=== PATIENT | female | born 1960 | race Caucasian/White ===

== ENCOUNTER 2018-07-24 08:56 | Outpatient (REF) | payer OTHER, SELFPAY ==
--- NOTE | 2018-07-24 08:30 | PAPFT_PTH ---
PATIENT: Leyda Broussard LOC: [facility] U#:[id number] AGE/SX: 58/F ROOM: RE07/24/[address]: Leyda San MD, DC : 1960 BED: DIS: 07/24/2018 SPEC #: [id number] RECD: 07/24/18 12:55 STATUS: SHANIA REMine #: [id number] DARIUS: 07/24/18 08:[address]: Leyda San DEPT: [facility] Cytology RECD BY: Samaria Brooks Tissues: 1 - CX/ENDOCX FOR PAP SMEARS Procedures: PAP THIN PREP/UVM Screening HPV DNA PROBE Comments: [id number]
== END 2018-07-24 09:16 ==
LOC: LBN 08:56
PROVIDERS: PCP Family Medicine; Visit Provider Family Medicine
DX: Z12.4 Encounter for screening for malignant neoplasm of cervix (principal); Z11.51 Encounter for screening for human papillomavirus (HPV)
CPT/HCPCS: 88142; 87624

== ENCOUNTER 2018-08-01 00:48 | Outpatient (CLI) | payer OTHER, SELFPAY ==
--- NOTE | 2018-08-01 16:00 | DI.MAMMO_ITS ---
SYMPTOMS/DIAGNOSIS: SCREENING, Z12.31 MAMMOGRAM: Mammograms were interpreted according to the usual protocol including computer analysis with CAD system, tomosynthesis and C view imaging. There is no evidence of a mass. There are no suspicious calcifications and there has been no significant interval change when compared with prior images. SUMMARY: No evidence of malignancy, Category I, yearly screening mammography is recommended. Breast density Category B. MQSA ASSESSMENT OF FINDINGS: Negative. Category 1. Patient will receive a letter notifying them of these results. BI-RADS category B. There are scattered areas of fibroglandular density.
== END 2018-08-01 01:08 ==
PROVIDERS: PCP Family Medicine; Visit Provider Family Medicine
DX: Z12.31 Encounter for screening mammogram for malignant neoplasm of breast (principal)
CPT/HCPCS: 77063; 77067

== ENCOUNTER 2019-01-15 08:38 | Outpatient (CLI) | payer OTHER, SELFPAY ==
[2019-01-15 12:52] LABS: ALT 22 U/L (12-78); AST 22 U/L (15-37); Albumin 4.4 g/dL (3.4-5.0); Alkaline Phosphatase 66 U/L (46-116); Anion Gap 8.6 mmol/L (3-11); BUN 15 mg/dL (7-18); Bilirubin, Total 0.6 mg/dL (0.2-1.0); CO2 29.4 mmol/L (21.0-32.0); CREATININE 1.07 mg/dL (0.55-1.02); Chloride 103 mmol/L (98-107); Cholesterol 265 mg/dL (50-200); Estimated GFR 52.31 (mL/min/1.73m2); Glucose 112 mg/dL (70-100); HDL Cholesterol 88 mg/dL (40-60); LDL CHOLESTEROL 151 mg/dL (<100); Potassium 4.5 mmol/L (3.5-5.1); Sodium 141 mmol/L (136-145); Total Protein 7.8 g/dL (6.4-8.2); Triglyceride 80 mg/dL (30-150)
[2019-01-15 13:55] LABS: Calcium 9.3 mg/dL (8.5-10.1)
== END 2019-01-15 08:58 ==
PROVIDERS: PCP Family Medicine; Visit Provider Family Medicine
DX: Z00.00 Encounter for general adult medical examination without abnormal findings (principal); I10 Essential (primary) hypertension
CPT/HCPCS: 36415; 80053; 80061; 83721

== ENCOUNTER 2019-03-05 18:34 | Outpatient (REF) | payer OTHER, SELFPAY | END 2019-03-05 18:54 | LOC: LBN 18:34 | PROVIDERS: PCP Family Medicine; Visit Provider Family Medicine | DX: R30.0 Dysuria (principal) | CPT/HCPCS: 87077; 87086; 87186 ==

== ENCOUNTER 2019-04-04 15:53 | Outpatient (CLI) | payer OTHER, SELFPAY ==
--- NOTE | 2019-04-04 15:30 | DI.RAD_ITS ---
SYMPTOM/DIAGNOSIS: GREAT TOE PAIN M79.671 RIGHT GREAT TOE: A beebee marker was placed over the area of pain which is located at the level of the first proximal phalanx dorsally. There is no evidence of fracture, bony erosion or visible mass. There are degenerative changes at the first MTP joint. IMPRESSION: First MTP joint degenerative changes.
== END 2019-04-04 16:13 ==
PROVIDERS: PCP Family Medicine; Visit Provider Family Medicine
DX: M79.674 Pain in right toe(s) (principal); M77.41 Metatarsalgia, right foot; M19.071 Primary osteoarthritis, right ankle and foot
CPT/HCPCS: 36415; 73660; 84550

== ENCOUNTER 2019-07-30 09:54 | Outpatient (REF) | payer OTHER, SELFPAY ==
--- NOTE | 2019-07-30 09:15 | PAPFT_PTH ---
PATIENT: Leyda Broussard LOC: [facility] U#:[id number] AGE/SX: 59/F ROOM: RE07/30/[address]: Leyda San MD, DC : 1960 BED: DIS: 07/30/2019 SPEC #: [id number] RECD: 07/30/19 12:51 STATUS: SHANIA REQ #: [id number] DARIUS: 07/30/19 09:[address]: Leyda aSn DEPT: [facility] Cytology RECD BY: Samaria Brooks Tissues: 1 - CX/ENDOCX FOR PAP SMEARS Procedures: PAP THIN PREP/UVM Screening HPV DNA PROBE Comments: [id number]
== END 2019-07-30 10:14 ==
LOC: LBN 09:54
PROVIDERS: PCP Family Medicine; Visit Provider Family Medicine
DX: Z12.4 Encounter for screening for malignant neoplasm of cervix (principal); Z11.51 Encounter for screening for human papillomavirus (HPV)
CPT/HCPCS: 88142; 87624

== ENCOUNTER 2019-08-19 01:26 | Outpatient (CLI) | payer OTHER, SELFPAY ==
--- NOTE | 2019-08-19 15:40 | DI.MAMMO_ITS ---
EXAM: MG MAMMO SCREENING CLINICAL HISTORY: screening Z12.39 TECHNIQUE: Bilateral full field digital CC and MLO mammographic images were obtained with 3D tomosyn thesis and utilizing computer aided detection (CAD). COMPARISON: 2008 through 2018. FINDINGS: The breasts are composed of scattered fibroglandular densities, breast density category B. No suspic ious masses or suspicious microcalcifications are seen. There has been no significant change. IMPRESSION: BI-RADS category 1, negative. Yearly screening mammography is recommended. BI-RADS Cat 1 - Negative. Breast Density - Category B - Scattered areas of fibroglandular density.
== END 2019-08-19 01:46 ==
PROVIDERS: PCP Family Medicine; Visit Provider Family Medicine
DX: Z12.31 Encounter for screening mammogram for malignant neoplasm of breast (principal)
CPT/HCPCS: 77063; 77067

== ENCOUNTER 2019-10-10 11:01 | Outpatient (CLI) | payer OTHER, SELFPAY ==
--- NOTE | 2019-10-10 13:02 | DI.RAD_ITS ---
EXAM: XR WRIST RT COMPLETE CLINICAL HISTORY: RT WRIST PAIN, M25.531. TECHNIQUE: 2D digital imaging was performed. COMPARISON: ARTHRITIS SERIES-MO HAND WRIST from 01/01/2018 FINDINGS: BONES: No acute fracture is present. No bony destructive lesion is seen. JOINTS: The carpal bones are normally aligned. SOFT TISSUE: Normal. IMPRESSION: Unremarkable radiographs of the right wrist.
--- NOTE | 2019-10-10 13:02 | DI.RAD_ITS ---
EXAM: XR HAND RT COMPLETE CLINICAL HISTORY: RT HAND PAIN M79.641. TECHNIQUE: 2D digital imaging was performed. COMPARISON: ARTHRITIS SERIES-MO HAND WRIST from 01/01/2018 FINDINGS: BONES: No acute fracture is present. No bony destructive lesion is seen. JOINTS: No dislocation present. SOFT TISSUE: Normal. IMPRESSION: Unremarkable radiographs of the right hand.
== END 2019-10-10 11:21 ==
PROVIDERS: PCP Family Medicine; Visit Provider Family Medicine
DX: M79.641 Pain in right hand (principal); M25.531 Pain in right wrist
CPT/HCPCS: 73110; 73130

== ENCOUNTER 2019-10-28 11:08 | Day surgery (SDC) | payer OTHER, SELFPAY ==
--- NOTE | 2019-10-28 06:54 | W.COLOREPORT ---
Date of service: 10/28/19 Time of Service: 11:59 Colonoscopy Report Date of procedure: 10/28/19 Pre-op diagnosis general: Hx of polyps Post-op diagnosis procedure note: other (Transverse polyp) Procedure: Colonoscopy with polypectomy Surgeon: Barby Mccauley Anesthesia proc note operative: other (General/ ASA 2/Brenton Oates CRNA ) Estimated blood loss (mL): 2 Pathology: other (Transverse polyp) Complications: None Disposition: same day Indications: 59 y/o female with history of sleep apnea and HTN presents for colonoscopy screening pre-op. Her last screening was in 2014, which was unremarkable. Screening in 2011 was remarkable for tubular adenoma's x 3. She denies a family history of colon cancer. She denies any changes in bowel habits including bloody or black tarry stools, abdominal pain, diarrhea or constipation. She denies constitutional symptoms. Prep: Miralax/Dulcolax Procedure Start Time: 11:59 Procedure End Time: 12:18 Retraction Time: 14 minutes Findings: Small sessile transverse polyp Procedure Description: After informed consent was obtained the patient was taken to the procedure room and placed in a left decubitous position. Monitors were applied and a time out was done. The patients name, date of , procedure, allergies to medications and metal in their body was reviewed. The patient was then sedated. Once sedated and comfortable a rectal exam was done. External exam was normal. Internal exam revealed a normal sphincter tone and no palpable masses. The scope was then introduced and retro-flexed. No internal hemorrhoids, masses or polyps were identified on retro-flexion. The scope was then advanced to the cecum without difficulty. The TI and appendiceal orifice were identified. The prep was adequate. The scope was then slowly retracted over 14 minutes back into the rectum. Polyps were removed with cold forceps in the transverse colon. The scope was removed and the patient was woken up and taken back to Same day surgery in stable condition. The patient tolerated the procedure well and there were no immediate complications. Follow up: The patient should follow up in 5 years unless they develop changes in bowel habits or other new gastrointestinal complaints.
--- NOTE | 2019-10-28 06:55 | W.PM.DSUDISC ---
Discharge Plan Disposition Patient Disposition: HOME Condition: Good Discharge Details Reason For Visit: Hx of colon polyps Attending Provider: Barby Mccauley Primary Care Provider: Leyda San Home Meds and New Rx's Prescriptions: Continued Denavir 1 % cream 1 applic Topical TID PRNRF: 0 prednisone 10 mg tablet 10 mg PO DAILY Qty: 10 RF: 0 ibuprofen 600 mg tablet 600 mg PO TID PRN (Reason: pain) Qty: 100 RF: 3 metoprolol succinate 50 mg tablet extended release 24 hr 50 mg PO DAILY Qty: 90 RF: 4 Zyrtec 10 MG capsule 10 mg PO DAILY PRNQty: 90 RF: 12 cholecalciferol (vitamin D3) 5,000 UNIT tablet 5,000 unit PO DAILY RF: 0 Discharge Instructions Additional Instructions: Findings: One small polyp Follow up: 5 years Please call if you develop: fevers >101.5 Nausea or Vomiting Abdominal pain that is not transient DAY SURGERY UNIT POST ENDOSCOPY INSTRUCTIONS 1. Because there will be medication in your system for the next 24 hours, you may feel a little sleepy. Your coordination will be affected. Therefore: a. Do not drive or operate dangerous equipment for 24 hours. b. Do not drink alcohol beverages for 24 hours (not even beer). c. Plan to go home and rest for the day. 2. Generally there are no restrictions on your activity after a day or so has gone by, but you may feel a bit fatigued for a few days. 3 After you arrive home you may have a light meal and return to a normal diet as you can tolerate it without feeling sick to your stomach. 4. After surgery, you may feel pain or discomfort. This should be only transient, but if it persists please contact your doctor. 5. If there are any questions regarding the findings of your procedure, please feel free to contact your doctor. 6. If you are unable to contact your doctor with a problem, contact the hospital at [phone]. 7. Continue all your regular medications unless directed otherwise. I understand the above instructions and have no questions. Signature of Patient or Responsible Adult Escort Date/Time Name of Responsible Adult Escort Signature of Nurse Date/Time Activity:: Activity as Tolerated Diet:: As Tolerated Discharge Orders Discharge Orders: Discharge Order (Routine); Ordered 10/28/19 Ordered By: Barby Mccauley DS: Diagnosis Discharge Diagnosis (1) Polyp of transverse colon: Status: Acute
[2019-10-28 11:25] VITALS: BP 186/91; PULSE 61; RESP 17; TEMP 36.2; O2SAT 100
[2019-10-28] MEDS: Lactated Ringers 1,000 ML 80 ML IV (11:49)
[2019-10-28 12:10] VITALS: BP 130/80; PULSE 56; RESP 17; TEMP 36.4; O2SAT 100
--- NOTE | 2019-10-28 12:12 | BOWEL_PTH ---
PATIENT: Leyda Broussard LOC: [facility] U#:[id number] AGE/SX: 59/F ROOM: RE10/28/[address]: Barby Mccauley MD : 1960 BED: DIS: 10/28/2019 SPEC #: [id number] RECD: 10/28/19 12:41 STATUS: SHANIA REQ #: [id number] DARIUS: 10/28/19 12:[address]: Barby Mccauley DEPT: Surgical Specimen RECD BY: Samaria Brooks ENTERED: 10/28/19 12:42 SP TYPE: Bowel OTHR DR: Leyda San MD, DC Tissues: 1 - BIOPSY BOWEL Procedures: GROSS AND MICRO LEVEL 4 Comments: [id number]
== END 2019-10-28 13:15 | disposition home or self-care (01) ==
LOC: SUR 11:09
PROVIDERS: PCP Family Medicine; Visit Provider Surgery
PROC: 0DJD8ZZ Inspection of Lower Intestinal Tract, Via Natural or Artificial Opening Endoscopic (ICD-10-PCS; CPT 45378; principal; 2019-10-28 12:30)
DX: Z12.11 Encounter for screening for malignant neoplasm of colon (principal); K63.5 Polyp of colon; Z86.010 Personal history of colon polyps; I10 Essential (primary) hypertension; G47.33 Obstructive sleep apnea (adult) (pediatric)
CPT/HCPCS: 45380; 88305

== ENCOUNTER 2020-04-30 09:10 | Outpatient (CLI) | payer OTHER, SELFPAY ==
--- NOTE | 2020-04-30 12:45 | DI.RAD_ITS ---
EXAM: XR WRIST LT COMPLETE CLINICAL HISTORY: pain left wrist/no trauma,M25.532 TECHNIQUE: COMPARISON: No exams were available for comparison FINDINGS: Three views were obtained. There is prominent ulnar styloid which is a nonspecific finding. Correla tion requested regarding any evidence of impingement in this region. The carpal alignment appears no rmal. No bony abnormality seen. IMPRESSION:
== END 2020-04-30 09:30 ==
PROVIDERS: PCP Family Medicine; Visit Provider Family Medicine
DX: M25.532 Pain in left wrist (principal)
CPT/HCPCS: 73110

== ENCOUNTER 2020-07-06 00:03 | Outpatient (REF) | payer OTHER, SELFPAY ==
[2020-07-08 07:45] LABS: Patient Race White; SARS-CoV-2 RNA Undetected (Undetected); SARS-CoV-2 Specimen Source Nasal
== END 2020-07-06 00:23 ==
LOC: LBO 00:03
PROVIDERS: PCP Family Medicine; Visit Provider Nurse Practitioner Family
DX: Z11.59 Encounter for screening for other viral diseases (principal)
CPT/HCPCS: U0003

== ENCOUNTER 2021-07-27 07:24 | Outpatient (CLI) | payer OTHER, SELFPAY ==
[2021-07-27 12:48] LABS: ALT 25 U/L (14-59); AST 24 U/L (15-37); Albumin 4.4 g/dL (3.4-5.0); Alkaline Phosphatase 62 U/L (46-116); Anion Gap 7.6 mmol/L (3-11); BUN 13 mg/dL (7-18); Bilirubin, Total 0.4 mg/dL (0.2-1.0); CO2 30.4 mmol/L (21.0-32.0); Calcium 9.3 mg/dL (8.5-10.1); Calculated LDL 150 mg/dL (<100); Chloride 101 mmol/L (98-107); Cholesterol 248 mg/dL (<200); Estimated GFR 56.18 (mL/min/1.73m2); Glucose 110 mg/dL (74-106); HDL Cholesterol 77 mg/dL (40-60); Sodium 139 mmol/L (136-145); Total Protein 7.6 g/dL (6.4-8.2); Triglyceride 107 mg/dL (<150)
== END 2021-07-27 07:25 | disposition home or self-care (01) ==
LOC: LOS 07:24
PROVIDERS: PCP Family Medicine; Referring Provider Family Medicine; Visit Provider Family Medicine
DX: Z00.00 Encounter for general adult medical examination without abnormal findings (principal); I10 Essential (primary) hypertension
CPT/HCPCS: 36415; 80053; 80061

== ENCOUNTER 2021-11-02 00:57 | Outpatient (CLI) | payer OTHER, SELFPAY ==
--- NOTE | 2021-11-02 07:15 | DI.MAMMO_ITS ---
Exam(s) MAMMO SCREENING EXAM: MAMMO SCREENING CLINICAL HISTORY: screening,Z12.39. TECHNIQUE: Bilateral full field digital CC and MLO mammographic images were obtained with 3D tomosyn thesis and utilizing computer aided detection (CAD). COMPARISON: Prior mammograms were reviewed, the most recent being August 2019. FINDINGS: Asymmetric tissue in the left breast on both CC and MLO views is unchanged prior studies. Benign-appearing microcalcifications in right breast are unchanged from prior studies. There are no new spiculated masses nor malignant-appearing microcalcification either There is no significant architectural distortion nor skin thickening-retraction. IMPRESSION: Stable benign findings. No radiographic evidence of malignancy. BI-RADS Category 2 - Benign Findings Breast Density - Category B - Scattered areas of fibroglandular density Breast density Category C or D implies that the patient has dense breast tissue. Dense breast tissue can make it harder to find cancer on a mammogram. Dense breast tissue is also associated with an incr eased risk of breast cancer. This information about the result of the mammogram report was provided to the patient to raise their awareness. Use this report when you speak with the patient about their risks for breast cancer, which includes their family history. At that time, you may recommend additional screening tests (Ultrasoun d or MRI) as these tests may add significant information. A negative radiographic report should not delay biopsy if a dominant or clinically suspicious mass is present. Up to ten percent of cancers are not identified on mammography. A negative report may reinforce clinical impression. Adenosis and dense breasts may obscure an underlying neoplasm. False positive reports average 6 to 10%. Patient will receive a letter notifying them of these results.
== END 2021-11-02 01:17 ==
PROVIDERS: PCP Family Medicine; Visit Provider Family Medicine
DX: Z12.31 Encounter for screening mammogram for malignant neoplasm of breast (principal)
CPT/HCPCS: 77063; 77067

== ENCOUNTER 2022-08-24 22:31 | Outpatient (REF) | payer OTHER, SELFPAY ==
[2022-08-24 21:01] LABS: HCT 39.5 % (36.0-46.0); HGB 13.6 g/dL (11.2-15.7); MCHC 34.4 % (32.0-36.0); MCV 93 fL (80-95); MPV 9.4 fL (8.0-11.0); Platelet Count 237 10^3/uL (130-400); RBC 4.25 10^6/uL (3.93-5.22); RDW 12.8 % (11.7-14.6); RDW-SD 43.7 fL; WBC 6.35 10^3/uL (4.4-10.8)
[2022-08-24 21:28] LABS: ALT 31 U/L (14-59); AST 29 U/L (15-37); Albumin 4.4 g/dL (3.4-5.0); Alkaline Phosphatase 74 U/L (46-116); Anion Gap 8.7 mmol/L (3-11); BUN 19 mg/dL (7-18); Bilirubin, Total 0.5 mg/dL (0.2-1.0); CO2 33.3 mmol/L (21.0-32.0); CREATININE 1.7 mg/dL (0.55-1.02); Calcium 9.6 mg/dL (8.5-10.1); Chloride 98 mmol/L (98-107); Estimated GFR 33.49 (mL/min/1.73m2); Glucose 142 mg/dL (74-106); Potassium 3.2 mmol/L (3.5-5.1); Sodium 140 mmol/L (136-145); Total Protein 7.9 g/dL (6.4-8.2)
== END 2022-08-24 22:32 | disposition home or self-care (01) ==
LOC: LBN 22:31
PROVIDERS: PCP Family Medicine; Visit Provider Family Medicine
DX: Z00.00 Encounter for general adult medical examination without abnormal findings (principal); I10 Essential (primary) hypertension
CPT/HCPCS: 80053; 85027; 84443

== ENCOUNTER 2022-09-05 08:48 | Outpatient (REF) | payer OTHER, SELFPAY ==
--- NOTE | 2022-09-05 08:30 | PAPFT_PTH ---
PATIENT: Leyda Broussard LOC: [facility]#:[id number] AGE/SX: 62/F ROOM: RE09/05/[address]: Leyda San MD, DC : 1960 BED: DIS: 09/05/2022 SPEC #: [id number] RECD: 09/05/22 13:36 STATUS: SHANIA MAR #: [id number] DARIUS: 09/05/22 08:[address]: Leyda San DEPT: [facility] Cytology RECD BY: Samaria Brooks Tissues: 1 - CX/ENDOCX FOR PAP SMEARS Procedures: PAP THIN PREP/UVM Screening HPV DNA PROBE Comments: [id number]
== END 2022-09-05 08:49 | disposition home or self-care (01) ==
LOC: LBN 08:48
PROVIDERS: PCP Family Medicine; Visit Provider Family Medicine
DX: Z12.4 Encounter for screening for malignant neoplasm of cervix (principal); Z11.51 Encounter for screening for human papillomavirus (HPV)
CPT/HCPCS: 88142; 87624

== ENCOUNTER 2023-04-06 08:21 | Outpatient (CLI) | payer OTHER, SELFPAY ==
[2023-04-06 12:40] LABS: BUN 16 mg/dL (7-18); CREATININE 1.2 mg/dL (0.55-1.02); Calcium 9.5 mg/dL (8.5-10.1); Chloride 99 mmol/L (98-107); Estimated GFR 50.55 (mL/min/1.73m2); Glucose 127 mg/dL (74-106); Potassium 3.3 mmol/L (3.5-5.1); Sodium 140 mmol/L (136-145)
[2023-04-06 13:33] LABS: Hemoglobin A1C 5.8 % (<5.7)
== END 2023-04-06 08:22 | disposition home or self-care (01) ==
LOC: LOS 08:21
PROVIDERS: PCP Family Medicine; Referring Provider Family Medicine; Visit Provider Family Medicine
DX: I10 Essential (primary) hypertension (principal); R79.89 Other specified abnormal findings of blood chemistry; R73.09 Other abnormal glucose
CPT/HCPCS: 36415; 80048; 83036

== ENCOUNTER 2023-04-07 00:42 | Outpatient (CLI) | payer OTHER, SELFPAY ==
--- NOTE | 2023-04-07 07:15 | DI.RAD_ITS ---
Exam(s) XR WRIST RT COMPLETE EXAM: XR WRIST RT COMPLETE CLINICAL HISTORY: r wrist pain, TENDINITIS, M77.8. TECHNIQUE: 2D digital imaging was performed of the right wrist. Three views were obtained. PA, lat eral and oblique views were obtained. COMPARISON: CR XR WRIST RT COMPLETE from 10/10/2019 FINDINGS: BONES: No acute fracture is present. No bony destructive lesion is seen. JOINTS: The carpal bones are normally aligned. The joint spaces are well maintained. SOFT TISSUE: Normal. IMPRESSION: Unremarkable radiographs of the right wrist. DATA REPOSITORY: RADIATION DOSE DELIVERED:
== END 2023-04-07 01:02 ==
LOC: DI 00:43
PROVIDERS: PCP Family Medicine; Visit Provider Family Medicine
DX: M77.8 Other enthesopathies, not elsewhere classified (principal)
CPT/HCPCS: 73110

== ENCOUNTER → 2023-07-03 14:41 | Outpatient (CLI) | payer OTHER, SELFPAY ==
--- NOTE | 2023-07-03 08:22 | DI.RAD_ITS ---
Exam(s) XR CERVICAL SP COMP W FLEX/EXT EXAM: XR CERVICAL SP COMP W FLEX/EXT CLINICAL HISTORY: fell on neck from ladder, trouble swallowing, cervical pain, M54.2. TECHNIQUE: 2D digital imaging was performed. Eight images were obtained. AP, odontoid, lateral, flex ion and extension and bilateral oblique images were obtained. COMPARISON: CR CERV SP.WITH OBL OR FLEX/EXT from 06/23/2009 FINDINGS: The odontoid is intact. The lateral masses are well aligned. There is minimal stable anterolisthesis of C5 on C6. This is unchanged with flexion or extension. The vertebral bodies, disc spaces and po sterior elements are well maintained. No acute fracture or subluxation is present. No significant ne ural foraminal stenosis is present. The cervical thoracic junction is well maintained. The preverte bral soft tissues are unremarkable. Lung apices are clear. IMPRESSION: No acute abnormality. No acute fracture or subluxation. DATA REPOSITORY: RADIATION DOSE DELIVERED:
== END ==
PROVIDERS: PCP Family Medicine; Visit Provider Family Medicine
DX: M54.2 Cervicalgia (principal)
CPT/HCPCS: 72052

== ENCOUNTER 2023-09-25 09:53 | Outpatient (CLI) | payer OTHER, SELFPAY ==
[2023-09-25 12:41] LABS: ALT 24 U/L (14-59); AST 26 U/L (15-37); Albumin 4.2 g/dL (3.4-5.0); Alkaline Phosphatase 70 U/L (46-116); Anion Gap 11.2 mmol/L (3-11); BUN 12 mg/dL (7-18); Bilirubin, Total 0.7 mg/dL (0.2-1.0); CO2 29.8 mmol/L (21.0-32.0); CREATININE 1.2 mg/dL (0.55-1.02); Calcium 9.6 mg/dL (8.5-10.1); Chloride 98 mmol/L (98-107); Estimated GFR 50.55 (mL/min/1.73m2); Glucose 140 mg/dL (74-106); Potassium 3.4 mmol/L (3.5-5.1); Sodium 139 mmol/L (136-145); Total Protein 7.9 g/dL (6.4-8.2)
== END 2023-09-25 09:54 | disposition home or self-care (01) ==
LOC: LOS 09:53
PROVIDERS: PCP Family Medicine; Referring Provider Family Medicine; Visit Provider Family Medicine
DX: I10 Essential (primary) hypertension (principal)
CPT/HCPCS: 36415; 80053

== ENCOUNTER → 2023-10-05 02:19 | Outpatient (CLI) | payer OTHER, SELFPAY ==
--- NOTE | 2023-10-05 07:00 | DI.DEXA_ITS ---
Exam(s) XR DEXA BONE DENSITY W/WO VICENTE EXAM: XR DEXA BONE DENSITY W/WO VICENTE CLINICAL HISTORY: screening for osteoporosis in postmenopausal woman,z78.0 TECHNIQUE: COMPARISON: No exams were available for comparison FINDINGS: Lateral Spine Image: Unremarkable. No compression deformities identified. Left hip: Total T-Score: 0.6 Total Z-Score: 1.8 T- and Z-scores: Within normal limits. Lumbar Spine: Total T-Score: -1.4 Total Z-Score: 0.3 T- and Z-scores: Findings are consistent with osteopenia. IMPRESSION: No evidence of osteoporosis.
== END ==
PROVIDERS: PCP Family Medicine; Visit Provider Family Medicine
DX: Z78.0 Asymptomatic menopausal state (principal); Z13.820 Encounter for screening for osteoporosis
CPT/HCPCS: 77080

== ENCOUNTER → 2023-10-13 01:38 | Outpatient (CLI) | payer OTHER, SELFPAY ==
--- NOTE | 2023-10-13 08:15 | DI.MAMMO_ITS ---
Exam(s) MAMMO SCREENING EXAM: MAMMO SCREENING CLINICAL HISTORY: screening, Z12.39. TECHNIQUE: Bilateral full field digital CC and MLO mammographic images were obtained with 3D tomosyn thesis and utilizing computer aided detection (CAD). COMPARISON: Prior mammograms were reviewed. FINDINGS: There has been no significant change in the appearance and distribution of the fibroglandular tissue. There are no CAD designations. There are no new spiculated masses nor malignant appearing microcalcification groups. Small 3 millimeter nodule in the right breast is unchanged from at least 2018 and therefore benign. Benign-appearing microcalcifications are again noted in both breasts. There is no significant architectural distortion nor skin thickening-retraction. IMPRESSION: No radiographic evidence of malignancy. Stable benign findings BI-RADS Category 2 - Benign Findings Breast Density - Category B - Scattered areas of fibroglandular density Breast density Category C or D implies that the patient has dense breast tissue. Dense breast tissue can make it harder to find cancer on a mammogram. Dense breast tissue is also associated with an incr eased risk of breast cancer. This information about the result of the mammogram report was provided to the patient to raise their awareness. Use this report when you speak with the patient about their risks for breast cancer, which includes their family history. At that time, you may recommend additional screening tests (Ultrasoun d or MRI) as these tests may add significant information. A negative radiographic report should not delay biopsy if a dominant or clinically suspicious mass is present. Up to ten percent of cancers are not identified on mammography. A negative report may reinforce clinical impression. Adenosis and dense breasts may obscure an underlying neoplasm. False positive reports average 6 to 10%. Patient will receive a letter notifying them of these results.
== END ==
PROVIDERS: PCP Family Medicine; Visit Provider Family Medicine
DX: Z12.31 Encounter for screening mammogram for malignant neoplasm of breast (principal)
CPT/HCPCS: 77063; 77067

== ENCOUNTER 2024-04-11 14:57 | Outpatient (REF) | payer OTHER, SELFPAY ==
[2024-04-11 21:26] LABS: Anion Gap 8.5 mmol/L (3-11); BUN 11 mg/dL (7-18); CO2 29.5 mmol/L (21.0-32.0); Calcium 9.5 mg/dL (8.5-10.1); Chloride 94 mmol/L (98-107); Estimated GFR 62.52 (mL/min/1.73m2); Glucose 143 mg/dL (74-106); Potassium 3.8 mmol/L (3.5-5.1); Sodium 132 mmol/L (136-145)
[2024-04-11 21:30] LABS: Hemoglobin A1C 5.5 % (<5.7)
== END 2024-04-11 14:58 | disposition home or self-care (01) ==
LOC: LBN 14:57
PROVIDERS: PCP Family Medicine; Visit Provider Family Medicine
DX: E11.9 Type 2 diabetes mellitus without complications (principal); N28.89 Other specified disorders of kidney and ureter
CPT/HCPCS: 80048; 83036

== ENCOUNTER 2024-06-20 11:03 | Outpatient (REF) | payer OTHER, SELFPAY ==
[2024-06-20 15:22] LABS: Bilirubin Negative (Negative); Blood Negative (Negative); Clarity Clear (Clear); Glucose Negative (Negative); Ketones Negative (Negative); Leukocyte Esterase Trace (Negative); Nitrite Negative (Negative); Specific Gravity 1.015 (1.005-1.025); Urobilinogen 0.2 mg/dL (Up to 0.2)
[2024-06-20 15:44] LABS: Bacteria Moderate HPF (Negative); Casts Negative LPF (Negative); Crystals Negative HPF (Negative); Epithelial Cells Moderate HPF (Negative); Mucus Negative (Negative); RBC 0-2 HPF (0-2)
[2024-06-20 15:45] LABS: C & S Indicated? No/Sq. Contamination
== END 2024-06-20 11:04 | disposition home or self-care (01) ==
LOC: LBN 11:03
PROVIDERS: PCP Family Medicine; Visit Provider Family Medicine
DX: R35.0 Frequency of micturition (principal)
CPT/HCPCS: 81003; 81015

== ENCOUNTER 2024-06-25 18:14 | Outpatient (REF) | payer OTHER, SELFPAY ==
[2024-06-25 13:41] LABS: Bilirubin Negative (Negative); Blood Trace-intact (Negative); Clarity Sl Cloudy (Clear); Glucose Negative (Negative); Ketones Negative (Negative); Leukocyte Esterase Large (Negative); Nitrite Positive (Negative); Urobilinogen 0.2 mg/dL (Up to 0.2); pH 6.5 (5-8)
[2024-06-25 13:59] LABS: Bacteria Many HPF (Negative); C & S Indicated? Yes; Casts Negative LPF (Negative); Crystals Negative HPF (Negative); Epithelial Cells Few HPF (Negative); Mucus Negative (Negative); RBC 0-2 HPF (0-2); WBC >50 HPF (0-5)
== END 2024-06-25 18:15 | disposition home or self-care (01) ==
LOC: LBN 18:14
PROVIDERS: PCP Family Medicine; Visit Provider Family Medicine
DX: R35.0 Frequency of micturition (principal)
CPT/HCPCS: 87077; 81003; 81015; 87086; 87186

== ENCOUNTER 2024-09-24 13:29 | Outpatient (CLI) | payer OTHER, SELFPAY ==
--- NOTE | 2024-09-24 15:25 | DI.RAD_ITS ---
Exam(s) XR LUMBAR SPINE COMPLETE EXAM: XR LUMBAR SPINE COMPLETE CLINICAL HISTORY: low back pain, m54.50. TECHNIQUE: 2D digital imaging was performed. Five views. COMPARISON: CR XR DEXA BONE DENSITY W/WO VICENTE from 10/05/2023 FINDINGS: BONES: No fracture or destructive lesion. Vertebral body heights are maintained. No facet hypertro phy identified . DISKS: Intervertebral disc spaces are maintained. Small endplate osteophytes. ALIGNMENT: Lumbar spinal alignment is within normal limits. SOFT TISSUE: Normal. IMPRESSION: Mild degenerative disc changes. DATA REPOSITORY: RADIATION DOSE DELIVERED:
--- NOTE | 2024-09-24 15:25 | DI.RAD_ITS ---
Exam(s) XR HIP PELVIS ADULT BL EXAM: XR HIP PELVIS ADULT BL CLINICAL HISTORY: b/l hip pain,m25.551,m25.552. TECHNIQUE: 2D digital imaging was performed. Three views. COMPARISON: CR BILATERAL HIPS ADULT from 11/10/2016 FINDINGS: BONES: No acute fracture is present. No bony destructive lesion is seen. JOINTS: No dislocation present. The hip joint spaces are maintained. No significant degenerative jeancarlos nges. SI joints and pubic symphysis are unremarkable. SOFT TISSUE: Normal. IMPRESSION: Unremarkable radiographs of the bilateral hips. DATA REPOSITORY: RADIATION DOSE DELIVERED:
== END 2024-09-24 13:49 ==
LOC: DI 13:29
PROVIDERS: PCP Family Medicine; Visit Provider Family Medicine
DX: M54.50 Low back pain, unspecified (principal); M25.551 Pain in right hip; M25.552 Pain in left hip
CPT/HCPCS: 73521; 72110

== ENCOUNTER 2024-10-31 12:59 | Outpatient (REF) | payer OTHER, SELFPAY ==
--- NOTE | 2024-10-31 10:30 | PAPFT_PTH ---
PATIENT: Leyda Broussard LOC: [facility]#:[id number] AGE/SX: 64/F ROOM: RE10/31/[address]: Leyda San MD, DC : 1960 BED: DIS: 10/31/2024 SPEC #: [id number] RECD: 10/31/24 13:05 STATUS: SHANIA REMine #: [id number] DARIUS: 10/31/24 10:[address]: Leyda San DEPT: [facility] Cytology RECD BY: Samaria Brooks Tissues: 1 - CX/ENDOCX FOR PAP SMEARS Procedures: PAP THIN PREP/UVM Screening HPV DNA PROBE Comments: [id number] (HPV 16 & 18/45)
== END 2024-10-31 13:00 | disposition home or self-care (01) ==
LOC: LBN 12:59
PROVIDERS: PCP Family Medicine; Visit Provider Family Medicine
DX: Z12.39 Encounter for other screening for malignant neoplasm of breast (principal); D12.6 Benign neoplasm of colon, unspecified
CPT/HCPCS: 88142; 87624

== ENCOUNTER 2024-11-15 00:07 | Outpatient (CLI) | payer OTHER, SELFPAY ==
--- NOTE | 2024-11-15 07:00 | DI.MAMMO_ITS ---
Exam(s) MAMMO SCREENING EXAM: MAMMO SCREENING CLINICAL HISTORY: screening,z12.39 TECHNIQUE: Bilateral full field digital CC and MLO mammographic images were obtained with 3D tomosyn thesis and utilizing computer aided detection (CAD). COMPARISON: Available for comparison. FINDINGS: Masses/Architectural Distortion: None seen. Microcalcifications: No suspicious pleomorphic-type are seen. Skin Thickening/Nipple Retraction: None. IMPRESSION: 1. No significant interval change with no specific features of malignancy noted. 2. Unless there is more urgent need, screening mammography is recommended, as per [employer] guidelines. BI-RADS Category 1 - Negative Breast Density - Category B - Scattered areas of fibroglandular density Breast density category C or D implies that the patient has dense breast tissue. Dense breast tissue is very common and is not abnormal but dense breast tissue can make it harder to find cancer on a ma mmogram. Also, dense breast tissue may increase their breast cancer risk. This information about the result of the mammogram report was provided to the patient to raise their awareness. Use this report when you speak with the patient about their risks for breast cancer, which includes their family hist ory. At that time, you may recommend for more screening tests (Ultrasound or MRI) as they might be us eful based on their risk. A negative radiographic report should not delay biopsy if a dominant or clinically suspicious mass is present. Up to ten percent of cancers are not identified on mammography. A negative report may reinforce clinical impression. Adenosis and dense breasts may obscure an underlying neoplasm. False positive reports average 6 to 10%. Patient will receive a letter notifying them of these results.
== END 2024-11-15 00:27 ==
LOC: DI 00:08
PROVIDERS: PCP Family Medicine; Visit Provider Family Medicine
DX: Z12.31 Encounter for screening mammogram for malignant neoplasm of breast (principal); R92.323 Mammographic fibroglandular density, bilateral breasts
CPT/HCPCS: 77063; 77067

== ENCOUNTER 2025-02-10 08:18 | Day surgery (SDC) | payer OTHER, SELFPAY ==
--- NOTE | 2025-02-09 12:13 | W.PM.DSUDISC ---
Date of service: 02/10/25 Discharge Plan Disposition Patient Disposition: Home Condition: Good Discharge Details Reason For Visit: screening colonoscopy Attending Provider: Don Lopez Primary Care Provider: Leyda San Home Meds and New Rx's Prescriptions: Continued chlorthalidone 25 mg tablet 12.5 mg PO DAILY Qty: 90 4RF potassium chloride 10 mEq capsule, extended release 10 meq PO BID Qty: 180 4RF ibuprofen 600 mg tablet 600 mg PO TID PRN (Reason: pain) Qty: 270 3RF Zyrtec 10 MG capsule 10 mg PO DAILY PRNQty: 90 cholecalciferol (vitamin D3) 5,000 UNIT tablet 5,000 unit PO DAILY tirzepatide (weight loss) 5 mg/0.5 mL pen injector 5 mg subcut QWEEK Qty: 6 4RF acyclovir 5 % ointment 1 applic topical 6XD 7 Days Qty: 5 2RF Rx Instructions: K12.0 diltiazem HCl 240 mg capsule,extended release 24hr 240 mg PO HS Discharge Instructions Instructions: Diverticulosis Additional Instructions: Leyda, was very nice meeting you today, and I hope you are comfortable through the procedure. Things went very smoothly. Your prep was excellent and I could see everything fine. I did not see any signs of tumors or polyps today. Incidentally, you do have some diverticulosis. Diverticula are weak spots in the muscular layer of the colon wall. This causes little pockets or pouches to form. On occasion, these can get infected or inflamed, that is typically experienced as pain usually in the left lower part of the abdomen. We refer to those episodes as diverticulitis. Hopefully, years will never give you any trouble. I will attach some basic information here about typical approaches to diverticular disease. With an otherwise negative colonoscopy today, as well as during your last colonoscopy, it would be very reasonable to extend your screening interval to 10 years. If you have any questions at all please do not hesitate to ask at any point. 1. If tolerated, consume a soft, low fiber diet for 1-2 days. 2. Do not drive, drink alcohol, operate machinery, make critical decisions, or do activities that require coordination or balance for 24 hours. 3. Because air was put into your colon during the procedure, expelling air from your rectum (passing gas or farting) is normal. 4. You may not have a bowel movement for 1-3 days because of the colonoscopy prep. This is normal. 5. Go directly to the emergency room if you notice any of the following: Develop chills (warm to touch), or if you have a thermometer and your temperature is above 101 Difficulty breathing or difficultly swallowing Persistent vomiting Severe abdominal pain, other than gas cramps Severe chest pain Black, tarry stools Any bleeding ? exceeding one tablespoon 6. Call your physician if the site where your intravenous was started becomes red, swollen, painful, and warm to touch. 7. Your physician has reviewed your pre-procedure medications. Please continue to take those medications as previously ordered. You will be given specific information/education regarding any changes to your medications before leaving. Activity:: Activity as Tolerated Diet:: As Tolerated Discharge Orders Discharge Orders: Discharge Order (Routine); Ordered 02/09/25 Ordered By: Don Lopez DS: Diagnosis Discharge Diagnosis (1) Encounter for screening colonoscopy: Status: Acute Asessment and Plan: Negative screening colonoscopy
--- NOTE | 2025-02-09 12:14 | W.COLOREPORT ---
Date of service: 02/10/25 Time of Service: 10:20 Colonoscopy Report Date of procedure: 02/10/25 Pre-op diagnosis general: screening colonoscopy Post-op diagnosis procedure note: other Procedure: colonoscopy Surgeon: Don Lopez Anesthesia Type: General:No Airway Estimated blood loss (mL): 0 Pathology: none sent Complications: None Disposition: same day Indications: Leyda is a 65 year old woman with a history of adenomatous polyps who needs a screening colonoscopy Prep: Miralax/Dulcolax Procedure Start Time: 09:53 Procedure End Time: 10:08 Retraction Time: 10 Findings: Sigmoid diverticulosis Procedure Description: After the induction of anesthesia, and with the patient in left lateral decubitus position, I began by performing an external anorectal exam.? Perineum and skin were normal, as was the anal verge.? There was no evidence of external hemorrhoids.? Next, I performed a digital rectal exam.? I did not appreciate any abnormal findings.? Next, I advanced a colonoscope into the rectal vault.? I performed retroflexion. This appeared normal.? Using insufflation, I then advanced the colonoscope beyond the rectal folds and into the sigmoid colon before advancing towards the cecum.? The quality of the prep was excellent.? The scope was noted to be in the cecum by identification of the ileocecal valve and appendiceal orifice.? I then began withdrawing the colonoscope using repeated irrigation as necessary for full evaluation of the colonic mucosa. There was sigmoid diverticulosis. ?Once the scope was withdrawn to the level of the rectum, great care was taken to examine portions of the rectal folds.? Finally, the scope was withdrawn and the patient was brought to the same-day surgery recovery unit as the anesthetic wore off. ?The findings and instructions were shared with the patient prior to discharge. Chauncey Bowel Prep Chauncey Bowel Prep Right Colon: 3 Left Colon: 3 Transverse Colon: 3 Total Score: 9
--- NOTE | 2025-02-09 17:58 | W.ANESPRE ---
General Info Date of Service Date Performed: 02/10/25 Height: 5 ft Weight: 58.06 kg Body Mass Index (BMI): 25.0 Surgical Procedure: Operation Date: 02/10/25 09:35 Proposed Procedure Side Surgeon silvino Lopez MD Meds Allergies and Home Medications Allergies Allergy/AdvReac Type Severity Reaction Status Date / Time amlodipine Allergy Mild Rash Verified 02/10/25 08:39 lisinopril AdvReac Cough Verified 02/10/25 08:39 losartan AdvReac rash Verified 02/10/25 08:39 Home Medication ?Medication ?Instructions ?Recorded cetirizine 10 mg capsule (Zyrtec) 10 mg PO DAILY PRN #90 tabs 05/11/15 cholecalciferol (vitamin D3) 125 5,000 unit PO DAILY 07/04/17 mcg (5,000 unit) tablet tirzepatide (weight loss) 5 mg/0.5 5 mg (0.5 mL) subcut QWEEK #6 mL 06/04/24 mL subcutaneous pen injector ibuprofen 600 mg tablet 600 mg PO TID PRN pain #270 tabs 09/23/24 acyclovir 5 % topical ointment 1 applic topical 6XD 7 days #5 10/28/24 grams chlorthalidone 25 mg tablet 12.5 mg (1/2 x 25 mg) PO DAILY #90 10/31/24 tabs potassium chloride 10 mEq 10 meq PO BID #180 caps 10/31/24 capsule,extended release diltiazem HCl 240 mg 240 mg PO HS 02/06/25 capsule,extended release 24 hr Current Visit Medications: Current Medications Generic Name Dose Route Start Last Admin Trade Name Freq PRN Reason Stop Dose Admin Ringer's Solution 1,000 mls @ 80 mls/hr 02/10/25 06:00 IV 02/10/25 23:59 [facility] IV Miscellaneous Supplies 1 each 02/10/25 06:00 Iv Access IV 02/10/25 23:59 DIRECTED TAE Ondansetron HCl 4 mg 02/09/25 12:15 Ondansetron 4 Mg/2 Ml Vial IVP 03/11/25 12:14 Q4H PRN PRN Nausea / Vomiting Sodium Chloride 0 ml 02/10/25 06:00 Normal Saline Flush 10 Ml Syr IV 02/10/25 23:59 PRN PRN Sodium Chloride 0 ml 02/10/25 06:00 Normal Saline 10 Ml Vial IJ 02/10/25 23:59 DIRECTED PRN Sterile Water 0 ml 02/10/25 06:00 Water,Injection,Sterile 10 Ml Vial IJ 02/10/25 23:59 DIRECTED PRN PFSH Active Problems Active Problems: Problem Status Onset Code Canker sores oral Acute K12.0 Low back pain Acute M54.50 Encounter for hepatitis C screening test for low risk patient Acute Z11.59 B12 deficiency Acute E53.8 Renal insufficiency Chronic N28.9 Elevated serum creatinine Acute R79.89 Decreased hearing Acute H91.90 Acute ear pain Acute H92.09 Annual physical exam Acute 06/02/16 Z00.00 Encounter for screening for other viral diseases Acute Z11.59 Right wrist tendinitis Acute M77.8 Polyp of transverse colon Acute K63.5 Annual physical exam Acute Z00.00 Great toe pain Acute M79.676 Sleep apnea syndrome Chronic 05/05/14 G47.30 Tubular adenoma of colon Chronic 05/11/15 D12.6 Hypertension Chronic I10 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 Chronic pain of right wrist Chronic 10/24/17 M25.531, G89.29 Cervical pain (neck) Chronic 11/09/15 M54.2 Carpal tunnel syndrome Chronic G56.00 Bilateral hip pain Chronic 12/06/16 M25.551, M25.552 Medical History Medical History Sensorineural hearing loss, bilateral Impacted cerumen, left ear Tinnitus, left Asymmetrical sensorineural hearing loss UTI (urinary tract infection) Amenorrhea 11/17 LMP Vertigo (11/04/14) Pain in toe left 5th toe Migraine (06/03/09) Cellulitis of right upper extremity (05/02/16) Surgical History Surgical History S/P carpal tunnel release bilateral S/P dilatation and curettage 10/16/00 aspiration curettage x 2 for DUB Open Carpal Tunnel release B/L Dilation and curettage (~2000) Colonoscopy - IV Sedation (04/09/12) DR. COPELAND-TUBULAR ADENOMA/COLONIC MUCOSA Cervical Procedure (~07/2001) ASPIR CURETT UTERUS X2 FOR DUB COLONOSCOPY/W IV (10/28/19) 2015- DR.ANNICK Oliver Tobacco Smoking/Tobacco Use Status: Never Passive smoking exposure: Yes Second hand exposure: Yes Alcohol Alcohol Intake: current Alcohol intake frequency: a few times a week Alcohol type: beer Substance Use Substance use: Never Substance use type: does not use Vital Signs and Lab Results Vital Signs Most Recent Vital Signs in EMR: Temp Pulse Resp BP Pulse Ox 36.3 C L 61 17 137/82 98 02/10/25 08:32 02/10/25 08:32 02/10/25 08:32 02/10/25 08:32 02/10/25 08:32 Lab Results Blood Type / Crossmatch: No Data to Display Complete Blood Count: No Data to Display Complete Metabolic Panel: No Data to Display Liver Function Panel: No Data to Display Coagulation Panel: No Data to Display Cardiac Panel: No Data to Display Arterial Blood Gas: No Data to Display Venous Blood Gas: No Data to Display Pancreas Panel: No Data to Display Thyroid Panel: No Data to Display Infectious Disease: No Data to Display Blood Cultures: No Data to Display Toxicology Panel: No Data to Display Anesthesia Assessment and Plan Anesthesia History Personal History: No History of Anesthesia Complications Family History: No Family History of Anesthesia Complications Exercise Tolerance Exercise Tolerance: Metabolic Equivalents>4 Pertinent Negatives Pertinent Negatives: No Symptoms of GERD, No Major Cardiovascular Symptoms or Complaints and No Major Pulmonary Symptoms or Complaints Cardiac & Pulmonary Exam Cardiac Exam: Heart Murmur Present (longstanding per patient) Pulmonary Exam: Clear Bilateral Breath Sounds Implantable Cardiac Device Does patient have a Pacemaker or an ICD?: No Airway Exam Known Difficult Airway: No Mallampati Class: 3 Mouth Opening: Normal (> 3cm) Thyromental Distance: Greater than 3 cm Neck Range of Motion: Full ROM Neck Circumference: Normal Teeth Condition: Normal Dentition ASA Classification ASA Score: ASA 2 Emergency Case?: No NPO Status NPO Status: NPO Clears >2 hours, Solids >8 hours Anesthesia Plan Resuscitation Status: Full Code Anesthesia Technique: General Anesthesia Airway Planned: Natural Airway Monitors Used: Standard Monitors Preoperative Comments:: 65 yo female for [place]. Sig PMHx: HTN, JONATHAN, neck pain, migraine, tirzep. never smoker. Previous Anes: - colo, prop, natural airways no issues.
[2025-02-10 08:32] VITALS: BP 137/82; PULSE 61; RESP 17; TEMP 36.3; O2SAT 98
[2025-02-10] MEDS: Lactated Ringers 1,000 ML 80 ML IV (08:50)
[2025-02-10 09:57] VITALS: BMI 25.0
[2025-02-10 10:13] VITALS: BP 122/68; PULSE 61; RESP 16; TEMP 36.3; O2SAT 99
[2025-02-10 10:30] VITALS: BP 131/86; PULSE 63; RESP 16; TEMP 36.4; O2SAT 100
--- NOTE | 2025-02-10 10:50 | W.ANESPOSTOP ---
Postoperative Evaluation Date, Time and Location Date Performed: 02/10/25 Time Performed: 10:50 Patient Location: Day Surgery Unit Vital Signs Most Recent Imported Vital Signs: Most Recent Vital Signs Temp Pulse Resp BP Pulse Ox 36.4 C L 63 16 131/86 100 02/10/25 10:30 02/10/25 10:30 02/10/25 10:30 02/10/25 10:30 02/10/25 10:30 Pain Score Most Recent Pain Score: Most Recent Pain Score Pain Level 0 02/10/25 10:30 Assessment Mental Status: Awake (Alert & Oriented to Patient Baseline) Airway and Respiratory Function: Patent airway with normal (patient baseline) respiratory exam Cardiovascular Function: Hemodynamically Stable Hydration Status: Adequately Hydrated Nausea & Vomiting: No Nausea or Vomiting Pain: Pt. Denies Any Pain Peripheral Nerve Block: Patient did not receive a nerve block
== END 2025-02-10 10:50 | disposition home or self-care (01) ==
LOC: SUR 08:18
PROVIDERS: PCP Family Medicine; Visit Provider Surgery
PROC: 0DJD8ZZ Inspection of Lower Intestinal Tract, Via Natural or Artificial Opening Endoscopic (ICD-10-PCS; CPT 45378; principal; 2025-02-10 09:30)
DX: Z12.11 Encounter for screening for malignant neoplasm of colon (principal); Z86.0101 Personal history of adenomatous and serrated colon polyps
CPT/HCPCS: 45378; J2704

== ENCOUNTER 2025-03-28 01:41 | Outpatient (CLI) | payer OTHER, SELFPAY ==
[2025-03-28 13:51] LABS: Vitamin B12 206 pg/mL (193-986)
== END 2025-03-28 01:42 | disposition home or self-care (01) ==
LOC: LOS 01:41
PROVIDERS: PCP Family Medicine; Visit Provider Family Medicine
DX: E53.8 Deficiency of other specified B group vitamins (principal); Z11.59 Encounter for screening for other viral diseases
CPT/HCPCS: 36415; 82607

== ENCOUNTER 2025-04-24 14:45 | Outpatient (REF) | payer OTHER, SELFPAY ==
[2025-04-24 20:28] LABS: Glucose Negative (Negative)
[2025-04-24 20:38] LABS: WBC 20-50 HPF (0-5)
== END 2025-04-24 14:46 | disposition home or self-care (01) ==
LOC: LBN 14:45
PROVIDERS: PCP Family Medicine; Visit Provider Family Medicine
DX: R30.0 Dysuria (principal); B96.29 Other Escherichia coli [E. coli] as the cause of diseases classified elsewhere
CPT/HCPCS: 81003; 81015